=== PATIENT | female | born 1945 | race Caucasian/White ===

== ENCOUNTER → 2023-09-02 08:15 | Outpatient (REF) | payer MEDICARE, SELFPAY ==
[2023-09-04 01:39] LABS: Calprotectin, Fecal 13 ug/g (<=49)
== END ==
LOC: REG 08:15
PROVIDERS: ATTENDING PHYSICIAN Internal Medicine; FAMILY PHYSICIAN Internal Medicine
DX: K58.0 Irritable bowel syndrome with diarrhea (principal)
CPT/HCPCS: 36415; 83993; 87045; 87046; 87077; 87324; 87328; 87329; 87427; 87449; 89055

== ENCOUNTER 2023-09-09 06:27 | Day surgery (SDC) | payer MEDICARE, SELFPAY ==
[2023-09-09 11:25] VITALS: BMI 24.4
[2023-09-09 11:26] VITALS: BP 152/107; BMI 24.4
[2023-09-09 14:51] VITALS: BP 118/69
[2023-09-09 15:00] VITALS: BP 120/66
[2023-09-09 15:11] VITALS: BP 131/86
== END 2023-09-09 15:23 | disposition home or self-care (01) ==
LOC: SDS 06:27
PROVIDERS: ATTENDING PHYSICIAN Internal Medicine
DX: K57.30 Diverticulosis of large intestine without perforation or abscess without bleeding (principal); K63.89 Other specified diseases of intestine; R19.7 Diarrhea, unspecified; D12.0 Benign neoplasm of cecum
CPT/HCPCS: 45385; 45380; 88305

== ENCOUNTER → 2023-11-17 09:41 | Outpatient (REF) | payer MEDICARE, SELFPAY | LOC: HWWDC 09:41 | PROVIDERS: ATTENDING PHYSICIAN Obstetrics & Gynecology; FAMILY PHYSICIAN Internal Medicine | DX: Z12.31 Encounter for screening mammogram for malignant neoplasm of breast (principal) | CPT/HCPCS: 77063; 77067 ==

== ENCOUNTER → 2023-12-16 07:46 | Outpatient (REF) | payer MEDICARE, SELFPAY ==
[2023-12-16 08:49] LABS: % Basophils 0.5 % (0-2); % Immature Granulocytes 0.5 % (0-0.5); % Lymphocytes 40.8 % (20.5-51.1); % Neutrophils 44.2 % (42.2-75.2); Absolute Eosinophils 0.1 10^3/uL (0-0.7); Absolute Lymphocytes 1.8 10^3/uL (1.2-3.4); Absolute Monocytes 0.5 10^3/uL (0.1-0.6); Absolute Neutrophils 1.9 10^3/uL (1.4-6.5); Mean Corpuscular Hgb 30.2 pg (27.0-31.0); Mean Corpuscular Volume 86.2 fL (81.0-99.0); Mean Platelet Volume 9.3 fL (7.4-10.4); Nucleated Red Blood Cells % 0 %; Platelet Count 287 10^3/uL (130-400); Red Blood Cell Count 4.64 10^6/uL (4.20-5.40); Red Cell Dist. Width 12.3 % (11.5-14.5); White Blood Cell Count 4.3 10^3/uL (4.8-10.8)
[2023-12-16 09:03] LABS: Urine Albumin Negative (Neg - Trace); Urine Bilirubin Negative (Negative); Urine Character Clear (Clear); Urine Color Yellow; Urine Glucose Negative (Negative); Urine Ketone Negative (Negative); Urine Leukocyte 1+ (Negative); Urine Nitrite Negative (Negative); Urine Occult Blood Negative (Negative); Urine Urobilinogen Negative (Neg - 1+)
[2023-12-16 09:25] LABS: ALT (SGPT) 22 U/L (0-35); AST (SGOT) 31 U/L (14-36); Albumin 4.6 g/dl (3.5-5.0); Alkaline Phosphatase 74 U/L (38-126); Blood Urea Nitrogen 14 mg/dl (7-17); Calcium 9.7 mg/dl (8.4-10.2); Carbon Dioxide 28 mmol/L (22-30); Chloride 99 mmol/L (98-107); Glucose 99 mg/dl (70-99); HDL Cholesterol 93 mg/dl; LDL Cholesterol, Calculated 110 mg/dl; Potassium 4.7 mmol/L (3.5-5.1); Sodium 137 mmol/L (135-145); Total Bilirubin 0.7 mg/dl (0.2-1.3); Total Cholesterol 230 mg/dl (50-199); Total Protein 7.4 g/dl (6.3-8.2); Triglyceride 135 mg/dl (10-149); Very Low Density Lipoprotein 27 mg/dl (0-30); eGFR > 60.00
[2023-12-16 09:28] LABS: Urine Amorphous Seen; Urine Mucus Moderate
[2023-12-16 09:30] LABS: Urine Bacteria Few (Negative); Urine Red Blood Cell 0-2 /HPF (0-2)
[2023-12-16 09:41] LABS: Free T4 1.28 ng/dl (0.78-2.19)
[2023-12-16 09:49] LABS: TSH 1.39 uIU/ml (0.47-4.68)
== END ==
LOC: REG 07:46
PROVIDERS: ATTENDING PHYSICIAN Internal Medicine
DX: E04.1 Nontoxic single thyroid nodule (principal); K57.90 Diverticulosis of intestine, part unspecified, without perforation or abscess without bleeding; E03.9 Hypothyroidism, unspecified
CPT/HCPCS: 36415; 80053; 80061; 81003; 81015; 84439; 84443; 85025

== ENCOUNTER → 2024-02-04 09:07 | Outpatient (REF) | payer MEDICARE, SELFPAY | LOC: RAD 09:07 | PROVIDERS: ATTENDING PHYSICIAN Internal Medicine; FAMILY PHYSICIAN Internal Medicine | DX: K57.92 Diverticulitis of intestine, part unspecified, without perforation or abscess without bleeding (principal) | CPT/HCPCS: 74177; Q9967 ==

== ENCOUNTER → 2024-03-18 08:01 | Outpatient (REF) | payer MEDICARE, SELFPAY | LOC: REG 08:01 | PROVIDERS: ATTENDING PHYSICIAN Nurse Practitioner; FAMILY PHYSICIAN Internal Medicine; REFERRING PHYSICIAN Internal Medicine | DX: R19.7 Diarrhea, unspecified (principal); K58.0 Irritable bowel syndrome with diarrhea | CPT/HCPCS: 87045; 87046; 87324; 87328; 87329; 87427; 87449 ==

== ENCOUNTER → 2024-03-23 08:42 | Outpatient (REF) | payer MEDICARE, SELFPAY ==
[2024-03-23 09:30] LABS: Hematocrit 39.7 % (37.0-47.0); Hemoglobin 13.6 g/dL (12.0-16.0); Mean Corp Hgb Conc. 34.3 g/dL (33.0-37.0); Mean Corpuscular Hgb 30.3 pg (27.0-31.0); Mean Corpuscular Volume 88.4 fL (81.0-99.0); Platelet Count 284 10^3/uL (130-400); Red Blood Cell Count 4.49 10^6/uL (4.20-5.40); Red Cell Dist. Width 12.4 % (11.5-14.5); White Blood Cell Count 5.4 10^3/uL (4.8-10.8)
[2024-03-23 09:46] LABS: ALT (SGPT) 20 U/L (0-35); AST (SGOT) 28 U/L (14-36); Albumin 4.4 g/dl (3.5-5.0); Alkaline Phosphatase 92 U/L (38-126); Blood Urea Nitrogen 12 mg/dl (7-17); Calcium 9.6 mg/dl (8.4-10.2); Carbon Dioxide 29 mmol/L (22-30); Chloride 98 mmol/L (98-107); Glucose 83 mg/dl (70-99); Potassium 4.4 mmol/L (3.5-5.1); Sodium 135 mmol/L (135-145); Total Bilirubin 0.6 mg/dl (0.2-1.3); Total Protein 7.4 g/dl (6.3-8.2); eGFR > 60.00
== END ==
LOC: REG 08:42
PROVIDERS: ATTENDING PHYSICIAN Internal Medicine; FAMILY PHYSICIAN Internal Medicine
DX: K57.92 Diverticulitis of intestine, part unspecified, without perforation or abscess without bleeding (principal); R10.31 Right lower quadrant pain
CPT/HCPCS: 36415; 80053; 85027

== ENCOUNTER → 2024-03-25 16:49 | Outpatient (REF) | payer MEDICARE, SELFPAY | LOC: RAD 16:49 | PROVIDERS: ATTENDING PHYSICIAN Internal Medicine; FAMILY PHYSICIAN Internal Medicine | DX: K57.92 Diverticulitis of intestine, part unspecified, without perforation or abscess without bleeding (principal); R10.31 Right lower quadrant pain | CPT/HCPCS: 74177; Q9967 ==

== ENCOUNTER → 2024-09-09 10:54 | Outpatient (REF) | payer MEDICARE, SELFPAY | LOC: RAD 10:54 | PROVIDERS: ATTENDING PHYSICIAN Internal Medicine | DX: R05.1 Acute cough (principal) | CPT/HCPCS: 71046 ==

== ENCOUNTER → 2024-09-13 15:23 | Outpatient (REF) | payer MEDICARE, SELFPAY ==
[2024-09-13 16:14] LABS: Hematocrit 37.5 % (37.0-47.0); Hemoglobin 13.1 g/dL (12.0-16.0); Mean Corp Hgb Conc. 34.9 g/dL (33.0-37.0); Mean Corpuscular Volume 88.2 fL (81.0-99.0); Nucleated Red Blood Cells % 0 %; Platelet Count 309 10^3/uL (130-400); Red Cell Dist. Width 12.3 % (11.5-14.5)
[2024-09-13 17:20] LABS: Blood Urea Nitrogen 15 mg/dl (7-17); Calcium 9.6 mg/dl (8.4-10.2); Carbon Dioxide 26 mmol/L (22-30); Chloride 106 mmol/L (98-107); Glucose 122 mg/dl (70-99); Potassium 4.5 mmol/L (3.5-5.1); Sodium 137 mmol/L (135-145); eGFR > 60.00
== END ==
LOC: REG 15:23
PROVIDERS: ATTENDING PHYSICIAN Student in an Organized Health Care Education/Training Program; FAMILY PHYSICIAN Internal Medicine
DX: Z01.818 Encounter for other preprocedural examination (principal)
CPT/HCPCS: 36415; 80048; 85025

== ENCOUNTER → 2024-12-20 10:27 | Outpatient (REF) | payer MEDICARE, SELFPAY ==
[2024-12-20 12:47] LABS: TSH 0.67 uIU/ml (0.47-4.68)
== END ==
LOC: REG 10:27
PROVIDERS: ATTENDING PHYSICIAN Internal Medicine
DX: E04.1 Nontoxic single thyroid nodule (principal)
CPT/HCPCS: 36415; 84439; 84443

== ENCOUNTER → 2025-02-22 09:22 | Outpatient (REF) | payer MEDICARE, SELFPAY | LOC: HWRAD 09:22 | PROVIDERS: ATTENDING PHYSICIAN Internal Medicine; FAMILY PHYSICIAN Internal Medicine | DX: R10.9 Unspecified abdominal pain (principal) | CPT/HCPCS: 76700 ==

== ENCOUNTER 2025-02-27 09:38 | Emergency (ER) | payer MEDICARE, SELFPAY ==
[2025-02-27 09:42] VITALS: BP 155/107
[2025-02-27 10:54] LABS: Hematocrit 39.8 % (37.0-47.0); Hemoglobin 13.9 g/dL (12.0-16.0); Mean Corp Hgb Conc. 34.9 g/dL (33.0-37.0); Mean Corpuscular Volume 86.0 fL (81.0-99.0); Platelet Count 271 10^3/uL (130-400); Red Cell Dist. Width 12.5 % (11.5-14.5)
[2025-02-27 11:03] LABS: ALT (SGPT) 20 U/L (0-35); AST (SGOT) 29 U/L (14-36); Albumin 4.5 g/dl (3.5-5.0); Alkaline Phosphatase 96 U/L (38-126); Blood Urea Nitrogen 11 mg/dl (7-17); Calcium 9.3 mg/dl (8.4-10.2); Carbon Dioxide 25 mmol/L (22-30); Chloride 102 mmol/L (98-107); Glucose 109 mg/dl (70-99); Lipase 129 U/L (23-300); Potassium 4.3 mmol/L (3.5-5.1); Sodium 134 mmol/L (135-145); Total Protein 8.0 g/dl (6.3-8.2); eGFR > 60.00
--- NOTE | 2025-02-27 11:40 | ED.GENMED ---
History of Present Illness
General
Chief Complaint: Abdominal Pain
Time Seen by Provider: 02/27/25 10:24
History of Present Illness
History of Present Illness:
79-year-old female presents to the emergency department for evaluation of persistent upper abdominal and left upper quadrant pain for the past 3 weeks. Worse after eating and improves when she is fasting. Does note some radiation of symptoms into
the throat. Had an outpatient ultrasound 3 days ago showing normal gallbladder with no cholelithiasis. She noted yellowish stools this morning and was sent to the ED for further evaluation
Past History
Past History
ED Past Medical History: GERD, Hypothyroidism and Other (Degenerative disc disease)
ED Past Surgical History: Appendectomy, Orthopedic, Tonsilectomy and Other (Thyroidectomy)
Social History
Tobacco: Former smoker
Alcohol: Occasional
Drug: None
Personal:
Living: with family
Employment: Retired
Family History
Family History: Other (Noncontributory)
Review of Systems
Review of Systems
Allergies reviewed?: Yes
All Other Systems: ROS reviewed and negative except as documented in HPI and ROS
Phy Exam
Physical Exam
Physical Exam:
GEN: Well appearing, NAD, WDWN
HEENT: Oral mucosa moist, no scleral icterus
Cardiac: Regular rate
Lung: No respiratory distress, no tachypnea
Abdomen: Soft, generally nontender to palpation, negative Johnston
MSK: No gross deformity or injuries
Skin: Good color, no pallor or jaundice, no rashes
Neuro: AO x3, moves all extremities freely
Psych: Calm, cooperative
Course
Orders/Labs/Results
Orders:
Orders
02/27/25 10:37
Complete Blood Count/No Diff Urgent
Comprehensive Metabolic Panel Urgent
Lipase Urgent
02/27/25 11:59
Urine Culture Urgent
DAVID Source: Urine
Specimen Description:
Obtained by: [facility]
Date Specimen was Collected: 02/27/25
Time Specimen was Collected: 11:49
Abnormal Lab Results
02/27/25
10:37
Sodium 134 L mmol/L
(135-145)
Glucose 109 H mg/dl
(70-99)
02/27/25 10:37
02/27/25 10:37
Vital Signs
Initial and Last Documented VS:
Initial Vital Signs
Temp Pulse Resp BP Pulse Ox
98.6 F 122 16 155/107 99
02/27/25 09:42 02/27/25 09:42 02/27/25 09:42 02/27/25 09:42 02/27/25 09:42
Last Documented Vital Signs
Temp Pulse Resp BP Pulse Ox
98.3 F 101 18 145/70 98
02/27/25 12:07 02/27/25 12:07 02/27/25 12:07 02/27/25 12:07 02/27/25 12:07
MDM/Problems Addressed
MDM/Problems Addressed:
Patient's labs are reassuring. I do not see any indication for CT imaging at this time given lack of significant tenderness. Spoke with her GI specialist who has referred her for outpatient HIDA with CCK thus the patient will be discharged to
continued outpatient follow-up
*Pulse Oximetry
SaO2: 99
Oxygen Mode of Delivery: Room air
Patient hypoxic: no
*Critical Care Note
Total Time (30-74mins, 75-104mins- exclusive of procedures): Not Applicable
ED Attending Note
-
Portions of this chart may have been created with voice recognition software.� Occasional wrong word or��sound alike� substitutions may have occurred due to the inherent limitations of voice recognition software.
Discharge Plan
Departure
Patient Disposition: Home (Routine Discharge)
Date of Disposition: 02/27/25
Time of Disposition: 11:40
Patient with high blood pressure during this ER visit?: No
Discharge Problem:
Abdominal pain
Instructions: Abdominal Pain
Prescriptions:
No Action
esomeprazole magnesium [Nexium] 40 MG capsule,delayed release(DR/EC)
20 mg PO DAILYPRN PRN (Reason: gerd)
uq-rjp-VL-Tt-Yf-nfutjbd-lutein 1 EACH tablet
1 tab PO DAILY
metoprolol tartrate 25 MG tablet
25 mg PO DAILYPRN PRN (Reason: rapid heart rate)
calcium phosphate-vitamin D3 1 EACH tablet,chewable
1 tab PO DAILY
acetaminophen [Tylenol Extra Strength] 500 MG tablet
1,000 mg PO Q6HPRN PRN (Reason: mild pain) Qty: 0 0RF
famotidine 20 mg Tablet
20 mg PO DAILY PRN (Reason: GERDS)
Probiotic
1 tab PO DAILY PRN (Reason: IBS)
Referrals:
Daryl Chamberlain MD [Family Provider, Internal Medicine]
Activity Restrictions/Additional Instructions:
You have an outpatient HIDA scan with CCK ordered by your GI specialist Dr Johns. Please call radiology scheduling at [phone]
Interventions
Interventions:
*General Assessment Last Done: 02/27/25 12:07
*Neglect/Abuse Screening Last Done: 02/27/25 12:09
*ED COVID-19 Vaccine History Last Done: 02/27/25 12:07
*ED Influenza Vaccine History Last Done: 02/27/25 12:07
[facility] Risk Assessment Tool Last Done: 02/27/25 11:14
*Risk Screen - Suicide (C-SSRS) Last Done: 02/27/25 12:07
*Nursing Disposition Last Done: 02/27/25 12:09
OY-Zbynpp-Ymzvtxvnba Assessment Last Done: 02/27/25 11:14
Discharge Date and Time
Discharge Date/Time: 02/27/25 12:10
Print Language: CUBAN
[2025-02-27 12:07] VITALS: BP 145/70
== END 2025-02-27 12:10 | disposition home or self-care (01) ==
LOC: EMR 09:38
PROVIDERS: Physician Assistant; EMERGENCY PHYSICIAN Emergency Medicine; FAMILY PHYSICIAN Internal Medicine
DX: R10.12 Left upper quadrant pain (principal); K21.9 Gastro-esophageal reflux disease without esophagitis; E03.9 Hypothyroidism, unspecified; Z87.891 Personal history of nicotine dependence; Z90.49 Acquired absence of other specified parts of digestive tract
CPT/HCPCS: 99283; 80053; 83690; 85027; 87086

== ENCOUNTER → 2025-03-01 09:19 | Outpatient (REF) | payer MEDICARE, SELFPAY | LOC: RAD 09:19 | PROVIDERS: ATTENDING PHYSICIAN Internal Medicine; FAMILY PHYSICIAN Internal Medicine | DX: R11.0 Nausea (principal); R10.13 Epigastric pain | CPT/HCPCS: 78227; A9537; J2805 ==

== ENCOUNTER 2025-03-06 06:28 | Day surgery (SDC) | payer MEDICARE, SELFPAY | END 2025-03-06 11:33 | disposition home or self-care (01) | LOC: GI 06:28 | PROVIDERS: ATTENDING PHYSICIAN Internal Medicine | DX: K22.2 Esophageal obstruction (principal); K44.9 Diaphragmatic hernia without obstruction or gangrene; R12 Heartburn; K31.89 Other diseases of stomach and duodenum; K29.50 Unspecified chronic gastritis without bleeding; K20.90 Esophagitis, unspecified without bleeding | CPT/HCPCS: 43239; 88305; 88342 ==